=== PATIENT | male | born 1950 | race Two or more races ===

== ENCOUNTER 2023-03-25 12:00 | Inpatient (IN) | payer OTHER ==
[~2023-03-25] VITALS: Ht 180.3 cm; Wt 68.0 kg
[2023-03-25] MEDS ORDERED: GABAPEN PO (13:46)
[2023-03-25] MEDS ORDERED: LIPITOR40 M1 PO (13:46)
[2023-03-25] MEDS ORDERED: ZESTRIL40 M1 PO (13:46)
[2023-03-25] MEDS ORDERED: BACLOFEN20 MG PO (13:47)
[2023-03-25] MEDS ORDERED: ARICEPT5 MG PO (13:47)
[2023-03-25] MEDS ORDERED: ELIQUIS5 MG PO (13:47)
[2023-03-25] MEDS ORDERED: TIM (13:48)
[2023-03-25] MEDS ORDERED: LISINOPRIL40 MG PO (13:55)
[2023-04-05] MEDS ORDERED: TAMSULOSIN HCL0.4 MG (08:26)
[2023-04-05] MEDS ORDERED: ALENDRONATE SOD70 MG (08:26)
[2023-04-05] MEDS ORDERED: GABAPENTIN400 MG (08:27)
[2023-04-05] MEDS ORDERED: BETIMOL5 ML (08:28)
[2023-04-05 12:08] LABS: ALBUMIN 3.5 gm/dL (3.4-5.0); CALCIUM 9.3 mg/dL (8.5-10.1); CREATININE SERUM 1.56 mg/dL (0.70-1.30); GFR 43.97; MAGNESIUM 1.7 mg/dL (1.8-2.4); PHOSPHOROUS 3.1 mg/dL (2.5-4.9); POTASSIUM 4.44 mEq/L (3.5-5.1)
[2023-04-05 12:11] LABS: HEMATOCRIT 40.3 % (39.0-48.0); HEMOGLOBIN 13.3 g/dL (13-16.00); MEAN CELL VOLUME 87.3 fL (80.0-100.00); MEAN CORPUSCULAR HEMOGLOBIN 28.8 pg (27.00-32.0); PLATELET COUNT 300 K/uL (150-450); RED BLOOD COUNT 4.62 M/uL (4.00-6.00); RED CELL DISTRIBUTION WIDTH 14.3 % (11.5-14.5)
[2023-04-06 07:08] LABS: ALBUMIN 3.1 gm/dL (3.4-5.0); CALCIUM 9.1 mg/dL (8.5-10.1); CREATININE SERUM 1.86 mg/dL (0.70-1.30); GFR 35.89; MAGNESIUM 1.7 mg/dL (1.8-2.4); PHOSPHOROUS 3.6 mg/dL (2.5-4.9); POTASSIUM 5.67 mEq/L (3.5-5.1)
[2023-04-06 07:14] LABS: HEMATOCRIT 38.7 % (39.0-48.0); HEMOGLOBIN 12.7 g/dL (13-16.00); MEAN CELL VOLUME 87.8 fL (80.0-100.00); MEAN CORPUSCULAR HEMOGLOBIN 28.7 pg (27.00-32.0); MEAN CORPUSCULAR HGB CONC 32.7 g/dl (32.0-36.0); PLATELET COUNT 252 K/uL (150-450); RED BLOOD COUNT 4.41 M/uL (4.00-6.00); RED CELL DISTRIBUTION WIDTH 14.3 % (11.5-14.5)
[2023-04-07 07:31] LABS: HEMATOCRIT 38.7 % (39.0-48.0); HEMOGLOBIN 12.5 g/dL (13-16.00); MEAN CORPUSCULAR HEMOGLOBIN 28.1 pg (27.00-32.0); MEAN CORPUSCULAR HGB CONC 32.3 g/dl (32.0-36.0); PLATELET COUNT 253 K/uL (150-450); RED BLOOD COUNT 4.45 M/uL (4.00-6.00); RED CELL DISTRIBUTION WIDTH 14.5 % (11.5-14.5)
[2023-04-07 08:12] LABS: ALBUMIN 3.5 gm/dL (3.4-5.0); BILIRUBIN TOTAL 0.59 mg/dL (0.3-1.2); CALCIUM 9.1 mg/dL (8.5-10.1); CREATININE SERUM 1.46 mg/dL (0.70-1.30); GFR 47.46; GLOBULINA 2.8 G/DL (2.4-3.5); POTASSIUM 4.47 mEq/L (3.5-5.1); TOTAL PROTEIN 6.3 gm/dL (6.4-8.2)
[2023-04-07] MEDS ORDERED: PEPCID AC20 MG PO (08:34)
[2023-04-07] MEDS ORDERED: HYOSCYAMINE0.125 M1 SL (08:34)
[2023-04-07] MEDS ORDERED: TRAM1TAB98 PO (08:35)
== END 2023-04-07 10:54 | disposition home or self-care (01) | DRG 331 ==
LOC: SURG 04-01 07:00 → EDBD 04-01 12:00 → SURG 04-01 12:00 → O/R 04-05 05:25 → SURG 04-05 10:02
PROVIDERS: Internal Medicine; ADMIT Surgery; ATTEND Surgery
PROC: 07BB4ZZ Excision of Mesenteric Lymphatic, Percutaneous Endoscopic Approach (ICD-10-PCS; 2023-04-05)
PROC: 07BC4ZZ Excision of Pelvis Lymphatic, Percutaneous Endoscopic Approach (ICD-10-PCS; 2023-04-05)
PROC: 3E0F7SF Introduction of Other Gas into Respiratory Tract, Via Natural or Artificial Opening (ICD-10-PCS; 2023-04-05)
PROC: 0DTF4ZZ Resection of Right Large Intestine, Percutaneous Endoscopic Approach (ICD-10-PCS; principal; 2023-04-05 07:00)
DX: C18.0 Malignant neoplasm of cecum (principal); R59.0 Localized enlarged lymph nodes; R19.4 Change in bowel habit; R63.4 Abnormal weight loss; I10 Essential (primary) hypertension

== ENCOUNTER 2023-05-06 05:30 | Day surgery (SDC) | payer OTHER ==
[~2023-05-06 05:30] MED LIST: ALENDRONATE SOD70 MG; ARICEPT5 MG PO; BACLOFEN20 MG PO; BETIMOL5 ML; ELIQUIS5 MG PO; GABAPEN PO; GABAPENTIN400 MG; HYOSCYAMINE0.125 M1 SL; LIPITOR40 M1 PO; LISINOPRIL40 MG PO; PEPCID AC20 MG PO; TAMSULOSIN HCL0.4 MG; TIM; TRAM1TAB98 PO; ZESTRIL40 M1 PO
[2023-05-06] MEDS ORDERED: TRAM1TAB98 PO (12:31)
== END 2023-05-06 14:50 | disposition home or self-care (01) ==
LOC: CIR.AMB 05:30
PROVIDERS: ATTEND Surgery
DX: C19 Malignant neoplasm of rectosigmoid junction (principal); D12.0 Benign neoplasm of cecum; R19.4 Change in bowel habit; R63.4 Abnormal weight loss; I10 Essential (primary) hypertension; E78.5 Hyperlipidemia, unspecified; Z20.822 Contact with and (suspected) exposure to COVID-19